=== PATIENT | male | born 1940 | race Caucasian/White ===

== ENCOUNTER 2018-04-07 19:56 | Inpatient (IN) | payer MEDICARE, OTHER ==
[2018-04-07] MEDS ORDERED: Morphine 4 MG/ML VIAL IVP STA (21:02)
[2018-04-07] MEDS ORDERED: Morphine 4 MG/ML VIAL ONE (21:06)
--- NOTE | 2018-04-07 21:24 | ED PDOC ---
HPI: Male Pain Time Seen by Provider: 04/07/18 20:52 Chief Complaint (Nursing): Male Genitourinary Chief Complaint (Provider): Male Genitourinary History Per: Patient Onset/Duration Of Symptoms: Hrs (x8) Current Symptoms Are (Timing): Still Present Additional Complaint(s): 78 y/o male with a PMHx of HTN and BPH presents to the ED for evaluation of urinary retention. Patient states that for the past eight hours, he has been unable to urinate and is instead passing blood slowly. Patient reports of having an enlarged prostrate and further states he has never needed surgery for it. Patient is now reporting of pelvic pain and back pain. Patient states he has needed a bryson for urinary retention once several years ago. Otherwise, patient denies nausea, vomiting, diarrhea, consitpation, fever and chills. PMD: Dr. Cantrell (clinic) however has not been there for 2 years Past Medical History Reviewed: Historical Data, Nursing Documentation, Vital Signs Vital Signs: Last Vital Signs Temp 97.7 F 04/07/18 19:57 Pulse 106 H 04/07/18 19:57 Resp 18 04/07/18 19:57 BP 151/73 H 04/07/18 19:57 Pulse Ox 100 04/07/18 19:57 - Medical History PMH: Asthma, Benign Prostatic Hyperplasia, COPD, HTN, Hypercholesterolemia Denies: HIV, Chronic Kidney Disease - Family History Family History: States: Hypertension - Social History Current smoker - smoking cessation education provided: No - Home Medications Home Medications: Ambulatory Orders Medication Instructions Recorded Amlodipine Besylate/Benazepril 1 cap PO DAILY 08/23/15 [Lotrel 5-20 mg Capsule] Finasteride [Proscar] 5 mg PO DAILY 08/23/15 Tamsulosin [Flomax] 0.4 mg PO DAILY 08/23/15 - Allergies Allergies/Adverse Reactions: Allergies Allergy/AdvReac Type Severity Reaction Status Date / Time No Known Allergies Allergy Verified 08/23/15 19:42 Review of Systems ROS Statement: Except As Marked, All Systems Reviewed And Found Negative (as per HPI) Gastrointestinal: Negative for: Nausea, Vomiting, Diarrhea, Constipation Genitourinary Male: Positive for: Other (urinary retention, pelvic pain) Musculoskeletal: Positive for: Back Pain Physical Exam - Reviewed Nursing Documentation Reviewed: Yes Vital Signs Reviewed: Yes - Physical Exam Appears: Positive for: Non-toxic, In Acute Distress Head Exam: Positive for: ATRAUMATIC, NORMOCEPHALIC Skin: Positive for: Warm, Dry Eye Exam: Positive for: EOMI, PERRL ENT: Negative for: Pharyngeal Erythema, Tonsillar Exudate Neck: Positive for: Painless ROM, Supple Cardiovascular/Chest: Positive for: Regular Rate, Rhythm. Negative for: Murmur Respiratory: Positive for: Normal Breath Sounds. Negative for: Wheezing Gastrointestinal/Abdominal: Positive for: Soft, Tenderness (to the pelic area). Negative for: Distended Male Genital Exam: Positive for: normal genitalia (otherwise:), other (penny blood occasionally oozing at the meatus ) Extremity: Positive for: Normal ROM. Negative for: Deformity Lymphatic: Negative for: Adenopathy Neurologic/Psych: Positive for: Alert. Negative for: Motor/Sensory Deficits - Laboratory Results Result Diagrams: 04/07/18 21:43 04/07/18 21:43 - ECG O2 Sat by Pulse Oximetry: 100 (RA) Pulse Ox Interpretation: Normal Medical Decision Making Medical Decision Making: Time: 2106 Impression: Urinary Obstruction Plan: -- Type and Screen -- CMP -- CBC with differentials -- PTT -- Prothrombin Time -- Morphine 2 mg IVP -- Urine Culture -- IV Insertion -- Bryson -- Urinalysis 10p Hgb 11, no recent baseline for comparison. Leukocytosis. 11p Bryson placed by nurse with relief of urine retention but despite bedside irrigation, continues to have bloody urine. CBI ordered. ASHLEIGH Henley Urology siphoner. Agrees with CBI and also for IV antibiotics. ASHLEIGH Kirkpatrick for hospitalization. Requests renal imaging. Scribe Attestation: Documented by Armando Lala, acting as a scribe for Viv Rae MD. Provider Scribe Attestation: All medical record entries made by the Scribe were at my direction and personally dictated by me. I have reviewed the chart and agree that the record accurately reflects my personal performance of the history, physical exam, medical decision making, and the department course for this patient. I have also personally directed, reviewed, and agree with the discharge instructions and disposition. Disposition - Clinical Impression Clinical Impression: Urinary retention, Hematuria Counseled Patient/Family Regarding: Studies Performed, Diagnosis - Disposition Disposition Time: 23:00 Condition: FAIR - POA Present On Arrival: None
[2018-04-07 22:13] LABS: BASO % 0.3 % (0.0-2.0); EOS % 0.1 % (0.0-4.0); HEMOGLOBIN 11.9 g/dL (12.0-18.0); LYMPH # 0.7 K/uL (1.0-4.3); MEAN CELL VOLUME 88.1 fl (80.0-94.0); MEAN CORPUSCULAR HGB CONC 31.8 g/dL (33.0-37.0); MEAN PLATELET VOLUME 8.8 fl (7.2-11.7); MONO # 0.5 K/uL (0.0-0.8); MONO % 3.1 % (0.0-10.0); NEUT # 13.5 K/uL (1.8-7.0); NEUT % 91.5 % (50.0-75.0); NRBC % 0.1 % (0.0-0.0); PLATELET COUNT 287 K/uL (130-400); RBC 4.25 Mil/uL (4.40-5.90); RED CELL DISTRIBUTION WIDTH 13.7 % (11.5-14.5); WHITE BLOOD COUNT 14.8 K/uL (4.8-10.8)
[2018-04-07 22:18] LABS: INR 1.1; PROTHROMBIN TIME 12.3 Seconds (9.8-13.1)
[2018-04-07 22:21] LABS: PARTIAL THROMBOPLASTIN TIME 29.1 Seconds (25.6-37.1)
[2018-04-07 22:22] LABS: ALB/GLOB RATIO 1.1 (1.0-2.1); ALBUMIN 4.1 g/dL (3.5-5.0); ALT/SGPT 23 U/L (21-72); AST/SGOT 24 U/L (17-59); BLOOD UREA NITROGEN 28 mg/dl (9-20); CALCIUM 9.5 mg/dL (8.4-10.2); GFR NON-AFRICAN AMERICAN > 60
[2018-04-07 23:01] LABS: LYMPHOCYTE 5 % (20-50); MONOCYTE 1 % (0-10); NEUTROPHIL 94 % (42-75); TOTAL CELLS COUNTED 100
[2018-04-07 23:02] LABS: PLATELET ESTIMATE NORMAL (NORMAL)
[2018-04-07 23:03] LABS: ANISOCYTOSIS SLIGHT; OVALOCYTES SLIGHT; POIKILOCYTOSIS SLIGHT
[2018-04-07] MEDS ORDERED: Ciprofloxacin 400mg/200ml D5W 400 MG/200 ML BAG IVPB STA (23:37)
[2018-04-08] MEDS ORDERED: Ciprofloxacin 400mg/200ml D5W 400 MG/200 ML BAG IVPB ONE (01:23)
[2018-04-08] MEDS ORDERED: Chlorhexidine Gluconate 1 APPL/PKT TP ONE ×3 (06:33→10:41)
--- NOTE | 2018-04-08 08:31 | RAD ---
Date of service: 04/07/2018 HISTORY: admission COMPARISON: 08/23/2015 chest x-ray. Prior CT chest with contrast report 07/25/2015 noted FINDINGS: LUNGS: Stable appearing left lung volume loss per similar leftward mediastinal shift. 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 Bilateral scarring/fibrosis both upper lobes-also also inferred an similar. Bilateral cavity formations also-much smaller in the right lung apex and similar in the left. These have been noted on prior CT reports. No radiographic chest x-ray change in appearance suggested. PLEURA: Biapical pleural parenchymal blending opacity. Left costophrenic angle hemidiaphragm obliterated-chronic left inferolateral pleural parenchymal pathology with or without effusion inferred. No right costophrenic angle pleural fluid noted. CARDIOVASCULAR: There is absence of aortic atherosclerotic calcification on x-ray. Normal cardiac size. No significant appearing pulmonary venous congestion. OSSEOUS STRUCTURES: No significant abnormalities. VISUALIZED UPPER ABDOMEN: Normal. OTHER FINDINGS: None. IMPRESSION: Chronic upper lobe pleural-parenchymal mixed pathology: Scarring/fibrosis/cystic lung disease and bronchiectasis with prior cavity formation-as referenced on CT. Similar extensive left lung volume loss. No interval changes per chest x-rays since 2016 appreciated.
[2018-04-08] MEDS ORDERED: Morphine 4 MG/ML VIAL IVP PRN (09:09)
[2018-04-08] MEDS ORDERED: Ciprofloxacin 200mg/100ml D5W 100 ML IVPB SCH (09:15)
[2018-04-08] MEDS ORDERED: Povidone Iodine Topical 10% Sol ONE (10:44)
[2018-04-08 10:55] LABS: HEMOGLOBIN 11.1 g/dL (12.0-18.0); MEAN CELL VOLUME 89.2 fl (80.0-94.0); MEAN CORPUSCULAR HEMOGLOBIN 28.3 pg (27.0-31.0); MEAN CORPUSCULAR HGB CONC 31.7 g/dL (33.0-37.0); RBC 3.91 Mil/uL (4.40-5.90); RED CELL DISTRIBUTION WIDTH 13.8 % (11.5-14.5); WHITE BLOOD COUNT 19.1 K/uL (4.8-10.8)
[2018-04-08 11:15] LABS: ALT/SGPT 18 U/L (21-72); AST/SGOT 24 U/L (17-59); BLOOD UREA NITROGEN 31 mg/dl (9-20); CALCIUM 9.3 mg/dL (8.4-10.2); GFR NON-AFRICAN AMERICAN > 60
--- NOTE | 2018-04-08 11:20 | CP.PCM.PN ---
Subjective - Date & Time of Evaluation Date of Evaluation: 04/08/18 Time of Evaluation: 10:54 - Subjective Subjective: Pt examined chart reviewed, Unable to re insert bryson. Discussed with Dr seman. Zhou procedcy with cysto pedrito Henley Objective - Vital Signs/Intake and Output Vital Signs (last 24 hours): Temp Pulse Resp BP Pulse Ox 97.9 F 84 20 110/64 100 04/08/18 08:19 04/08/18 08:19 04/08/18 08:19 04/08/18 02:40 04/08/18 08:19 - Medications Medications: Current Medications Albuterol/Ipratropium (Duoneb 3 Mg/0.5 Mg (3 Ml) Ud) 3 ml INH RTID BIBI Amlodipine Besylate (Norvasc) 5 mg PO DAILY BIBI Finasteride (Proscar) 5 mg PO DAILY BIBI Ciprofloxacin (Cipro 200mg/100ml D5w) 100 mls @ 100 mls/hr IVPB Q12 BIBI; Pro tocol Morphine Sulfate (Morphine) 2 mg IVP Q4 PRN PRN Reason: Pain, moderate (4-7) Last Admin: 04/08/18 09:22 Dose: 2 mg - Labs Labs: 04/07/18 21:43 04/07/18 21:43 PT 12.3 Seconds (9.8-13.1) 04/07/18 21:43 INR 1.1 04/07/18 21:43 APTT 29.1 Seconds (25.6-37.1) 04/07/18 21:43
--- NOTE | 2018-04-08 11:50 | CP.PCM.HP ---
Past Patient History - Past Medical History & Family History Past Medical History?: Yes - Past Social History Smoking Status: Former Smoker - CARDIAC Hx Cardiac Disorders: Yes Hx Hypercholesterolemia: Yes Hx Hypertension: Yes - PULMONARY Hx Respiratory Disorders: Yes Hx Asthma: Yes Hx Chronic Obstructive Pulmonary Disease (COPD): Yes - NEUROLOGICAL Hx Neurological Disorder: No - HEENT Hx HEENT Problems: No - RENAL Hx Chronic Kidney Disease: No - ENDOCRINE/METABOLIC Hx Endocrine Disorders: No - HEMATOLOGICAL/ONCOLOGICAL Hx Blood Disorders: No Hx AIDS: No Hx Human Immunodeficiency Virus (HIV): No - INTEGUMENTARY Hx Dermatological Problems: No - MUSCULOSKELETAL/RHEUMATOLOGICAL Hx Back Pain: Yes Hx Falls: No Hx Herniated Disk: Yes - GASTROINTESTINAL Hx Gastrointestinal Disorders: No - GENITOURINARY/GYNECOLOGICAL Hx Prostate Problems: Yes (BPH 5yrs ago) - PSYCHIATRIC Hx Psychophysiologic Disorder: No Hx Substance Use: No - SURGICAL HISTORY Hx Surgeries: No - ANESTHESIA Hx Anesthesia: Yes (local for dental work) Hx Anesthesia Reactions: No Hx Malignant Hyperthermia: No Has any member of the family had a problem w/ anesthesia?: No Meds Allergies/Adverse Reactions: Allergies Allergy/AdvReac Type Severity Reaction Status Date / Time No Known Allergies Allergy Verified 04/08/18 01:24 Results - Vital Signs Recent Vital Signs: Last Vital Signs Temp 97.9 F 04/08/18 08:19 Pulse 84 04/08/18 08:19 Resp 20 04/08/18 08:19 BP 110/64 04/08/18 02:40 Pulse Ox 100 04/08/18 08:19 - Labs Result Diagrams: 04/07/18 21:43 04/07/18 21:43 Labs: Laboratory Results - last 24 hr 04/07/18 04/07/18 04/07/18 21:43 21:43 21:43 WBC 14.8 H D RBC 4.25 L Hgb 11.9 L Hct 37.4 MCV 88.1 D MCH 28.0 MCHC 31.8 L RDW 13.7 Plt Count 287 D MPV 8.8 Neut % (Auto) 91.5 H Lymph % (Auto) 5.0 L [place] % (Auto) 3.1 Eos % (Auto) 0.1 Baso % (Auto) 0.3 Neut # (Auto) 13.5 H Lymph # (Auto) 0.7 L [place] # (Auto) 0.5 Eos # (Auto) 0.0 Baso # (Auto) 0.0 Neutrophils % (Manual) 94 H Lymphocytes % (Manual) 5 L Monocytes % (Manual) 1 Platelet Estimate Normal Poikilocytosis (manual Slight Anisocytosis (manual) Slight Ovalocytes Slight PT 12.3 INR 1.1 APTT 29.1 Sodium 139 Potassium 4.9 Chloride 104 Carbon Dioxide 24 Anion Gap 16 BUN 28 H Creatinine 1.1 Est GFR ( Amer) > 60 Est GFR (Non-Af Amer) > 60 Random Glucose 152 H Calcium 9.5 Total Bilirubin 0.4 AST 24 ALT 23 Alkaline Phosphatase 65 Total Protein 7.9 Albumin 4.1 Globulin 3.8 Albumin/Globulin Ratio 1.1 Blood Type Antibody Screen BBK History Checked 04/07/18 21:43 WBC RBC Hgb Hct MCV MCH MCHC RDW Plt Count MPV Neut % (Auto) Lymph % (Auto) [place] % (Auto) Eos % (Auto) Baso % (Auto) Neut # (Auto) Lymph # (Auto) [place] # (Auto) Eos # (Auto) Baso # (Auto) Neutrophils % (Manual) Lymphocytes % (Manual) Monocytes % (Manual) Platelet Estimate Poikilocytosis (manual Anisocytosis (manual) Ovalocytes PT INR APTT Sodium Potassium Chloride Carbon Dioxide Anion Gap BUN Creatinine Est GFR ( Amer) Est GFR (Non-Af Amer) Random Glucose Calcium Total Bilirubin AST ALT Alkaline Phosphatase Total Protein Albumin Globulin Albumin/Globulin Ratio Blood Type O POSITIVE Antibody Screen Negative BBK History Checked No verified bt
--- NOTE | 2018-04-08 12:56 | CT ---
Date of service: 04/07/2018 PROCEDURE: CT Abdomen and Pelvis without intravenous contrast HISTORY: urinary obstruction COMPARISON: Comparison made with the CT chest from 08/24/2015. A report from that exam is available. A CT abdomen and pelvic study without available report has some of the coronal images available to me. All of these axial images from the prior 2011 study are not available to me at this time. TECHNIQUE: Without contrast. Contrast dose: None Radiation dose: Total exam DLP = 218 mGy-cm. This CT exam was performed using one or more of the following dose reduction techniques: Automated exposure control, adjustment of the mA and/or kV according to patient size, and/or use of iterative reconstruction technique. FINDINGS: LOWER THORAX: The mixed cystic and apparently consolidative process at the left lung base posteriorly is similar in size previously bronchiectasis fibrosis here was referenced. Correlation with any known pre-existing pulmonary disease here is there are recommended. Left lung volume loss with mediastinal shift is similar in appearance with the 2016 study. There is some suggestion of some pathology at the left posterior lung base on the limited coronal CT abdomen and pelvic exam from 2010 as well. LIVER: Unremarkable. No gross lesion or ductal dilatation. GALLBLADDER AND BILE DUCTS: Large gallstone within the gallbladder noted. This is at least 2 cm in size and appears impacted in the gallbladder neck as it was a suggested as well on the [address] abdomen and pelvic image. No gross dilated intrahepatic bile ducts noted. PANCREAS: Unremarkable. No gross lesion or ductal dilatation. SPLEEN: Unremarkable. ADRENALS: Unremarkable. No mass. KIDNEYS AND URETERS: Bilateral multiple nonobstructing renal calculi noted. No calculi most of these appear less than 5 mm in size. An additional hypodensity perhaps a left lower renal pole cyst is also present a similar suggestion of this on the 2010 study is also noted. No hydronephrosis. No ureteral dilatation. VASCULATURE: No aortic aneurysm. There is presence of aortic atherosclerotic calcification and mural plaque on cross sectional studies. BOWEL: Moderate stool retention.. No obstruction. No gross mural thickening. APPENDIX: Unremarkable. Normal appendix. PERITONEUM: Unremarkable. No free fluid. No free air. LYMPH NODES: Unremarkable. No enlarged lymph nodes. BLADDER: Markedly distended as detailed below. REPRODUCTIVE: The bladder is distended with a large differential hypodensity in its posterior base of probably relating to the markedly enlarged prostate indenting the bladder base here. Indwelling Ness catheter is in place. The prostate measures 5.3 x 6.1 cm on axial series 3, image 160. Is also approximately 6 cm in cephalo caudal extent. Seminal vesicles appear unremarkable. Additional concomitant pathology in the bladder cannot be excluded. BONES: No acute fracture. OTHER FINDINGS: None. IMPRESSION: Distended bladder compatible with bladder outlet obstruction from a markedly enlarged prostate. No hydroureter or hydronephrosis seen. Nonobstructing renal calculi. Other findings as above. Chronic left lung base pathology coalescing cystic/bronchiectatic likely fibrotic changes as detailed above. Chronic left lung volume as above. Concordant results (preliminary interpretation) provided by [facility].
[2018-04-08] MEDS ORDERED: cefTRIAXone (Rocephin) 1 gm Inj ONE (16:45)
[2018-04-08] MEDS ORDERED: Lactated Ringer's 1,000 ML IV ONE (16:50)
[2018-04-08] MEDS ORDERED: Propofol 10 mg/ml Inj (20 ML) ONE (16:54)
[2018-04-08] MEDS ORDERED: Etomidate 20 mg/10ml Inj IV ONE (16:54)
[2018-04-08] MEDS ORDERED: Gentamicin 80mg/50ml NS 160 MG/100 ML BAG IVPB ONE (16:59)
[2018-04-08] MEDS ORDERED: Lidocaine 2% Jelly (Uro-Jet) ONE (17:33)
--- NOTE | 2018-04-08 17:49 | PCM.SURG1 ---
Surgeon's Initial Post Op Note - Surgeon's Notes Surgeon: Lory Services Manager: PATRICIA Type of Anesthesia: General LMA Anesthesia Administered By: staff Pre-Operative Diagnosis: BPH/Urinary retention/Gross Hematuria?clot retention Operative Findings: BPH clots Post-Operative Diagnosis: Hematuria/clot retention Operation Performed: Cysto evacuation uf clots. Insertion of Hematuria cath Specimen/Specimens Removed: clots Estimated Blood Loss: EBL {In ML}: 200 Blood Products Given: N/A Drains Used: No Drains Post-Op Condition: Good Date of Surgery/Procedure: 04/08/18 Time of Surgery/Procedure: 17:51
[2018-04-08] MEDS: Ciprofloxacin 400mg/200ml D5W 400 MG/200 ML BAG IVPB SCH (20:33)
[2018-04-08] MEDS: Albuterol-Ipratrop 3 mg / 0.5 (3 ml) UD INH SCH (20:45)
[2018-04-09] MEDS: Lactated Ringer's 1,000 ML IV SCH (00:03)
--- NOTE | 2018-04-09 02:31 | CON ---
DATE: 04/08/2018 REASON FOR CONSULTATION: Gross hematuria and urinary retention. HISTORY OF PRESENT ILLNESS: The patient presented to the emergency room here at [facility] with inability to urinate and gross hematuria. A 3-way catheter was inserted and the CBI was begun, and the patient was admitted to the hospital. Since being admitted to the hospital, the catheter had become clogged and then removed. The patient is complaining of difficulty in urination. He says he had slow progressive difficulty urination, beginning several months before admission and this culminated in urinary retention and gross hematuria. He denies any history of previous instrumentation or surgery. REVIEW OF SYSTEMS: RESPIRATORY SYSTEM: The patient has no respiratory complaints. GASTROINTESTINAL: The patient has no GI complaints. GENITOURINARY: The patient is having difficulty urination and has gross bloody hematuria. ORTHOPEDIC: Negative. NEUROLOGICAL: Negative. PSYCHIATRIC: Negative. SOCIAL AND FAMILY HISTORY: The patient is a nonsmoker and has a family in the [place] area. PHYSICAL EXAMINATION: VITAL SIGNS: Within normal limits. HEAD, EARS, EYES, NOSE, AND THROAT: Within normal limits. NECK: Supple. There are no bruits, nodes, or masses. CHEST: Clear bilaterally. There are no rales or rhonchi. HEART: Normal sinus rhythm. ABDOMEN: Soft and nontender. The bladder is distended four fingers above the pubic bone. There is minimal suprapubic tenderness. Testicles, epididymitis, and cord are normal. Penis is normal, circumcised. Meatus is adequate. Prostate is 3 to 4+ non-nodular without induration or tenderness. EXTREMITIES: Normal. VASCULAR EXAMINATION: Normal. NEUROLOGIC: Normal. IMPRESSION: Benign prostatic hypertrophy with gross hematuria and urinary clot retention. PLAN: Attempt was made to place a Ness catheter but was unsuccessful. This patient will need cystoscopy and removal of clots in addition which we are awaiting the report of the CAT scan of the abdomen and pelvis. The patient's family was notified and consent was obtained and decision was made to proceed with the procedure today. The OR is notified, and we are waiting an OR start time. Janak Henley MD [facility] # [id number]
--- NOTE | 2018-04-09 02:36 | OP ---
PROCEDURE DATE: 04/07/2018 PREOPERATIVE DIAGNOSIS: Urinary clot retention and benign prostatic hypertrophy. POSTOPERATIVE DIAGNOSIS: Urinary clot retention and benign prostatic hypertrophy. PROCEDURE: Cystoscopy and evacuation of clots. SURGEON: Janak Henley M.D. DESCRIPTION OF PROCEDURE: Prior to the procedure, we reviewed the previously signed consent with the son and daughter as well as the patient. The patient had received antibiotics. He agreed to proceed with the procedure. He was fully aware of the risks and limitations. He was brought in the room and draped and prepped in usual manner. Time-out was taken according to the rules and regulations of [facility]. The patient was cystoscoped with a #21 Storz panendoscope. The pendulous, membranous urethra was normal. The prostatic urethra showed trilobar hypertrophy, appeared very friable, and there was evidence of bleeding recently. The bladder was full of clots. These were evacuated using Sj syringe until all clotted blood was evacuated. Using a catheter guide, a #24 three-way hematuria catheter was inserted and normal saline irrigation was begun and was clear. The patient tolerated the procedure well and was sent to the recovery room in good condition. Dr. Kirkpatrick was advised of the findings and further plans. Janak Henley MD
[2018-04-09] MEDS: Albuterol-Ipratrop 3 mg / 0.5 (3 ml) UD INH SCH ×3 (07:21→19:08)
--- NOTE | 2018-04-09 07:50 | CARD ---
APPROVED REPORT Date of service: 04/08/2018 EKG Measurement Heart [id number] <Conclusion> Normal sinus rhythm Right atrial enlargement RSR' or QR pattern in V1 suggests right ventricular conduction delay Nonspecific T wave abnormality Prolonged QT Abnormal ECG
[2018-04-09] MEDS: Ciprofloxacin 400mg/200ml D5W 400 MG/200 ML BAG IVPB SCH ×2 (08:32→20:39)
[2018-04-09 12:18] LABS: HEMOGLOBIN 8.4 g/dL (12.0-18.0); MEAN CELL VOLUME 89.4 fl (80.0-94.0); MEAN CORPUSCULAR HEMOGLOBIN 28.7 pg (27.0-31.0); MEAN CORPUSCULAR HGB CONC 32.1 g/dL (33.0-37.0); RBC 2.92 Mil/uL (4.40-5.90); RED CELL DISTRIBUTION WIDTH 13.6 % (11.5-14.5); WHITE BLOOD COUNT 12.2 K/uL (4.8-10.8)
[2018-04-09 12:32] LABS: BLOOD UREA NITROGEN 25 mg/dl (9-20); CALCIUM 8.6 mg/dL (8.4-10.2); GFR NON-AFRICAN AMERICAN > 60
--- NOTE | 2018-04-09 22:41 | CP.PCM.PN ---
Subjective - Date & Time of Evaluation Date of Evaluation: 04/09/18 Time of Evaluation: 22:39 - Subjective Subjective: Urine is clear with CBI will stop Q1hr irrigation if urine is clear tomorrow will remove foley. Henley Objective - Vital Signs/Intake and Output Vital Signs (last 24 hours): Temp Pulse Resp BP Pulse Ox 98.1 F 92 H 18 138/70 99 04/09/18 16:28 04/09/18 16:28 04/09/18 16:28 04/09/18 16:28 04/09/18 16:28 - Medications Medications: Current Medications Albuterol/Ipratropium (Duoneb 3 Mg/0.5 Mg (3 Ml) Ud) 3 ml INH RTID [facility] Last Admin: 04/09/18 19:08 Dose: 3 ml Amlodipine Besylate (Norvasc) 5 mg PO DAILY BIBI Last Admin: 04/09/18 08:33 Dose: 5 mg Finasteride (Proscar) 5 mg PO DAILY BIBI Last Admin: 04/09/18 08:33 Dose: 5 mg Ciprofloxacin (Cipro 400mg/200ml Dsw) 400 mg in 200 mls @ 200 mls/hr IVPB Q12 BIBI; Protocol Last Admin: 04/09/18 20:39 Dose: 200 mls/hr Lactated Ringer's (Lactated Ringer's) 1,000 mls @ 100 mls/hr IV .Q10H BIBI Last Admin: 04/09/18 00:03 Dose: 100 mls/hr Morphine Sulfate (Morphine) 2 mg IVP Q4 PRN PRN Reason: Pain, moderate (4-7) Last Admin: 04/08/18 09:22 Dose: 2 mg - Labs Labs: 04/09/18 12:14 04/09/18 12:14 PT 12.3 Seconds (9.8-13.1) 04/07/18 21:43 INR 1.1 04/07/18 21:43 APTT 29.1 Seconds (25.6-37.1) 04/07/18 21:43
--- NOTE | 2018-04-10 00:38 | CP.PCM.PN ---
Subjective - Date & Time of Evaluation Date of Evaluation: 04/09/18 Objective - Vital Signs/Intake and Output Vital Signs (last 24 hours): Temp Pulse Resp BP Pulse Ox 98.1 F 85 20 111/58 L 98 04/10/18 00:15 04/10/18 00:15 04/10/18 00:15 04/10/18 00:15 04/10/18 00:15 - Medications Medications: Current Medications Albuterol/Ipratropium (Duoneb 3 Mg/0.5 Mg (3 Ml) Ud) 3 ml INH RTID [facility] Last Admin: 04/09/18 19:08 Dose: 3 ml Amlodipine Besylate (Norvasc) 5 mg PO DAILY BIBI Last Admin: 04/09/18 08:33 Dose: 5 mg Finasteride (Proscar) 5 mg PO DAILY [facility] Last Admin: 04/09/18 08:33 Dose: 5 mg Ciprofloxacin (Cipro 400mg/200ml Dsw) 400 mg in 200 mls @ 200 mls/hr IVPB Q12 BIBI; Protocol Last Admin: 04/09/18 20:39 Dose: 200 mls/hr Lactated Ringer's (Lactated Ringer's) 1,000 mls @ 100 mls/hr IV .Q10H BIBI Last Admin: 04/09/18 00:03 Dose: 100 mls/hr Morphine Sulfate (Morphine) 2 mg IVP Q4 PRN PRN Reason: Pain, moderate (4-7) Last Admin: 04/08/18 09:22 Dose: 2 mg Tamsulosin HCl (Flomax) 0.4 mg PO DAILY BIBI - Labs Labs: 04/09/18 12:14 04/09/18 12:14 PT 12.3 Seconds (9.8-13.1) 04/07/18 21:43 INR 1.1 04/07/18 21:43 APTT 29.1 Seconds (25.6-37.1) 04/07/18 21:43
[2018-04-10 06:31] LABS: HEMOGLOBIN 8.1 g/dL (12.0-18.0); MEAN CELL VOLUME 89.6 fl (80.0-94.0); MEAN CORPUSCULAR HEMOGLOBIN 29.1 pg (27.0-31.0); MEAN CORPUSCULAR HGB CONC 32.5 g/dL (33.0-37.0); RBC 2.78 Mil/uL (4.40-5.90); RED CELL DISTRIBUTION WIDTH 13.7 % (11.5-14.5); WHITE BLOOD COUNT 12.2 K/uL (4.8-10.8)
[2018-04-10] MEDS: Albuterol-Ipratrop 3 mg / 0.5 (3 ml) UD INH SCH ×3 (07:29→20:12)
[2018-04-10] MEDS: Ciprofloxacin 400mg/200ml D5W 400 MG/200 ML BAG IVPB SCH ×2 (09:46→20:33)
--- NOTE | 2018-04-10 15:17 | CP.PCM.PN ---
Subjective - Date & Time of Evaluation Date of Evaluation: 04/10/18 Time of Evaluation: 15:14 - Subjective Subjective: Urine is now clear. Pt is afibrile wbc trending downward urine cultures not yet reported. A Hematuria resolved. P. Ness removed for voiding trial if pt voids may be discharged on flomax finesteride and antibiotics,as per culture Objective - Vital Signs/Intake and Output Vital Signs (last 24 hours): Temp Pulse Resp BP Pulse Ox 97.4 F L 83 19 130/66 94 L 04/10/18 08:48 04/10/18 09:40 04/10/18 08:48 04/10/18 09:40 04/10/18 08:48 - Medications Medications: Current Medications Albuterol/Ipratropium (Duoneb 3 Mg/0.5 Mg (3 Ml) Ud) 3 ml INH RTID [facility] OF [facility] Last Admin: 04/10/18 13:09 Dose: 3 ml Amlodipine Besylate (Norvasc) 5 mg PO DAILY [facility] Last Admin: 04/10/18 09:40 Dose: 5 mg Finasteride (Proscar) 5 mg PO DAILY [facility] Last Admin: 04/10/18 09:40 Dose: 5 mg Ciprofloxacin (Cipro 400mg/200ml Dsw) 400 mg in 200 mls @ 200 mls/hr IVPB Q12 ON [facility] OF [facility]; Protocol Last Admin: 04/10/18 09:46 Dose: 200 mls/hr Lactated Ringer's (Lactated Ringer's) 1,000 mls @ 100 mls/hr IV .Q10H ON [facility] OF [facility] Last Admin: 04/09/18 00:03 Dose: 100 mls/hr Morphine Sulfate (Morphine) 2 mg IVP Q4 PRN PRN Reason: Pain, moderate (4-7) Last Admin: 04/08/18 09:22 Dose: 2 mg Tamsulosin HCl (Flomax) 0.4 mg PO DAILY [facility] Last Admin: 04/10/18 09:53 Dose: 0.4 mg - Labs Labs: 04/10/18 05:20 04/09/18 12:14 PT 12.3 Seconds (9.8-13.1) 04/07/18 21:43 INR 1.1 04/07/18 21:43 APTT 29.1 Seconds (25.6-37.1) 04/07/18 21:43
[2018-04-10 16:56] VITALS: RESP 20
--- NOTE | 2018-04-10 16:56 | CP.PCM.PN ---
Subjective - Date & Time of Evaluation Date of Evaluation: 04/10/18 Time of Evaluation: 15:50 Objective - Vital Signs/Intake and Output Vital Signs (last 24 hours): Temp Pulse Resp BP Pulse Ox 97.4 F L 83 19 130/66 94 L 04/10/18 08:48 04/10/18 09:40 04/10/18 08:48 04/10/18 09:40 04/10/18 08:48 - Medications Medications: Current Medications Albuterol/Ipratropium (Duoneb 3 Mg/0.5 Mg (3 Ml) Ud) 3 ml INH RTID [facility] Last Admin: 04/10/18 13:09 Dose: 3 ml Amlodipine Besylate (Norvasc) 5 mg PO DAILY [facility] Last Admin: 04/10/18 09:40 Dose: 5 mg Finasteride (Proscar) 5 mg PO DAILY [facility] Last Admin: 04/10/18 09:40 Dose: 5 mg Ciprofloxacin (Cipro 400mg/200ml Dsw) 400 mg in 200 mls @ 200 mls/hr IVPB Q12 BIBI; Protocol Last Admin: 04/10/18 09:46 Dose: 200 mls/hr Lactated Ringer's (Lactated Ringer's) 1,000 mls @ 100 mls/hr IV .Q10H BIBI Last Admin: 04/09/18 00:03 Dose: 100 mls/hr Morphine Sulfate (Morphine) 2 mg IVP Q4 PRN PRN Reason: Pain, moderate (4-7) Last Admin: 04/08/18 09:22 Dose: 2 mg Tamsulosin HCl (Flomax) 0.4 mg PO DAILY [facility] Last Admin: 04/10/18 09:53 Dose: 0.4 mg - Labs Labs: 04/10/18 05:20 04/09/18 12:14 PT 12.3 Seconds (9.8-13.1) 04/07/18 21:43 INR 1.1 04/07/18 21:43 APTT 29.1 Seconds (25.6-37.1) 04/07/18 21:43
[2018-04-11 06:45] LABS: HEMOGLOBIN 8.2 g/dL (12.0-18.0); MEAN CELL VOLUME 87.5 fl (80.0-94.0); MEAN CORPUSCULAR HEMOGLOBIN 28.9 pg (27.0-31.0); RBC 2.82 Mil/uL (4.40-5.90); RED CELL DISTRIBUTION WIDTH 13.9 % (11.5-14.5); WHITE BLOOD COUNT 9.5 K/uL (4.8-10.8)
[2018-04-11] MEDS: Albuterol-Ipratrop 3 mg / 0.5 (3 ml) UD INH SCH ×3 (07:43→19:54)
[2018-04-11] MEDS: Ciprofloxacin 400mg/200ml D5W 400 MG/200 ML BAG IVPB SCH (08:32)
--- NOTE | 2018-04-11 09:33 | CP.PCM.PN ---
Subjective - Date & Time of Evaluation Date of Evaluation: 04/11/18 Time of Evaluation: 09:28 - Subjective Subjective: Pt uriating clear urine Urologically ok for discharge. gu fu in 2 weeks.pt He should stay on flomax amd proscar. + oral antibiotics. Hosay Objective - Vital Signs/Intake and Output Vital Signs (last 24 hours): Temp Pulse Resp BP Pulse Ox 97.4 F L 73 20 148/70 96 04/11/18 08:35 04/11/18 08:35 04/11/18 08:35 04/11/18 08:35 04/11/18 08:35 - Medications Medications: Current Medications Albuterol/Ipratropium (Duoneb 3 Mg/0.5 Mg (3 Ml) Ud) 3 ml INH RTID [facility] Last Admin: 04/11/18 07:43 Dose: 3 ml Amlodipine Besylate (Norvasc) 5 mg PO DAILY [facility] Last Admin: 04/11/18 08:31 Dose: 5 mg Finasteride (Proscar) 5 mg PO DAILY [facility] Last Admin: 04/11/18 08:32 Dose: 5 mg Ciprofloxacin (Cipro 400mg/200ml Dsw) 400 mg in 200 mls @ 200 mls/hr IVPB Q12 BBII; Protocol Last Admin: 04/11/18 08:32 Dose: 200 mls/hr Lactated Ringer's (Lactated Ringer's) 1,000 mls @ 100 mls/hr IV .Q10H [facility] Last Admin: 04/09/18 00:03 Dose: 100 mls/hr Morphine Sulfate (Morphine) 2 mg IVP Q4 PRN PRN Reason: Pain, moderate (4-7) Last Admin: 04/08/18 09:22 Dose: 2 mg Tamsulosin HCl (Flomax) 0.4 mg PO DAILY [facility] Last Admin: 04/11/18 08:31 Dose: 0.4 mg - Labs Labs: 04/11/18 05:45 04/09/18 12:14 PT 12.3 Seconds (9.8-13.1) 04/07/18 21:43 INR 1.1 04/07/18 21:43 APTT 29.1 Seconds (25.6-37.1) 04/07/18 21:43
--- NOTE | 2018-04-11 20:33 | PQF ---
PROVIDER RESPONSE TEXT: Anemia of Blood Loss REVIEWER QUERY TEXT: Clarification of Clinical Diagnostic Findings Please clarify if there I an associated diagnosis to go along with the following clinical labs: H/H:1 1.9/37.4->11.1/34.9-.8.4/26.1->8.1/24.9 OR: Disagree OR: Unable to determine 1/2 : Op note; PREOP DX: Urinary clot retention and benign prostatic hypertrophy. POSTOP DX: Urinary clot retention and benign prostatic hypertrophy. PROCEDURE: Cystoscopy and evacuation of clots ? . The patient's Clinical Indicators include: -- Query created by: Usha Ch on 04/10/2018 10:10 AM Electronically signed by: Tomasa Kirkpatrick MD 04/11/2018 8:30 PM
[2018-04-12] MEDS: Albuterol-Ipratrop 3 mg / 0.5 (3 ml) UD INH SCH ×3 (09:14→13:54)
[2018-04-12 16:03] VITALS: BP 115/65; PULSE 73; TEMP 98.1; O2SAT 97
[2018-04-12] MEDS: Lactated Ringer's 1,000 ML IV SCH (17:20)
--- NOTE | 2018-04-12 23:00 | CP.PCM.PN ---
Subjective - Date & Time of Evaluation Date of Evaluation: 04/11/18 Time of Evaluation: 07:20 - Subjective Subjective: Sates feeling Better. Voiding non-bloody Urine. Objective - Vital Signs/Intake and Output Vital Signs (last 24 hours): Temp Pulse Resp BP Pulse Ox 98.1 F 73 20 115/65 97 04/12/18 16:03 04/12/18 16:03 04/12/18 16:03 04/12/18 16:03 04/12/18 16:03 Intake and Output: 04/12/18 04/13/18 18:59 06:59 Intake Total 1200 Output Total 2049 Balance -850 - Labs Labs: 04/11/18 05:45 04/09/18 12:14 PT 12.3 Seconds (9.8-13.1) 04/07/18 21:43 INR 1.1 04/07/18 21:43 APTT 29.1 Seconds (25.6-37.1) 04/07/18 21:43 - Constitutional Appears: Well - Head Exam Head Exam: ATRAUMATIC, NORMAL INSPECTION, NORMOCEPHALIC - Eye Exam Eye Exam: EOMI, Normal appearance, PERRL Pupil Exam: NORMAL ACCOMODATION, PERRL - ENT Exam ENT Exam: Mucous Membranes Moist, Normal Exam - Neck Exam Neck Exam: Full ROM, Normal Inspection. absent: Lymphadenopathy - Respiratory Exam Respiratory Exam: Clear to Ausculation Bilateral, NORMAL BREATHING PATTERN - Cardiovascular Exam Cardiovascular Exam: REGULAR RHYTHM, +S1, +S2. absent: Murmur - GI/Abdominal Exam GI & Abdominal Exam: Soft, Normal Bowel Sounds. absent: Tenderness - Extremities Exam Extremities Exam: Full ROM, Normal Capillary Refill, Normal Inspection. absent: Joint Swelling, Pedal Edema - Back Exam Back Exam: NORMAL INSPECTION - Neurological Exam Neurological Exam: Alert, Awake, CN II-XII Intact, Normal Gait, Oriented x3 - Psychiatric Exam Psychiatric exam: Normal Affect, Normal Mood - Skin Skin Exam: Dry, Intact, Normal Color, Warm Assessment and Plan (1) Acute urinary retention Status: Acute (2) S/P cystoscopy Status: Acute (3) Hematuria Status: Acute (4) Benign prostate hyperplasia Status: Chronic (5) Hypertension Status: Chronic - Assessment and Plan (Free Text) Plan: Continue IVF IV Cipro Flomax and Proscar ADP for D/c tomorrow
--- NOTE | 2018-04-12 23:05 | CP.PCM.DIS ---
Provider - Provider Date of Admission: 04/07/18 23:43 Attending physician: Tomasa Kirkpatrick MD Consults: 04/07/18 23:39 Urology Consult Stat Comment: Consulting Provider: Janak Henley Jr. Consulting Physician: Janak Henley Jr. Reason for Consult: hematuria 04/08/18 02:54 Social Work Referral Routine Comment: Per admission database Physician Instructions: Reason For Exam: pt lives alone Time Spent in preparation of Discharge (in minutes): 30 Diagnosis - Discharge Diagnosis (1) Hematuria, gross Status: Acute (2) Acute urinary retention Status: Acute (3) S/P cystoscopy Status: Acute (4) Benign prostate hyperplasia Status: Chronic (5) Hypertension Status: Chronic Hospital Course - Lab Results Lab Results: Most Recent Lab Values WBC 9.5 K/uL (4.8-10.8) 04/11/18 05:45 RBC 2.82 Mil/uL (4.40-5.90) L 04/11/18 05:45 Hgb 8.2 g/dL (12.0-18.0) L 04/11/18 05:45 Hct 24.7 % (35.0-51.0) L 04/11/18 05:45 MCV 87.5 fl (80.0-94.0) D 04/11/18 05:45 MCH 28.9 pg (27.0-31.0) 04/11/18 05:45 MCHC 33.0 g/dL (33.0-37.0) 04/11/18 05:45 RDW 13.9 % (11.5-14.5) 04/11/18 05:45 Plt Count 229 K/uL (130-400) 04/11/18 05:45 MPV 8.8 fl (7.2-11.7) 04/07/18 21:43 Neut % (Auto) 91.5 % (50.0-75.0) H 04/07/18 21:43 Lymph % (Auto) 5.0 % (20.0-40.0) L 04/07/18 21:43 [place] % (Auto) 3.1 % (0.0-10.0) 04/07/18 21:43 Eos % (Auto) 0.1 % (0.0-4.0) 04/07/18 21:43 Baso % (Auto) 0.3 % (0.0-2.0) 04/07/18 21:43 Neut # (Auto) 13.5 K/uL (1.8-7.0) H 04/07/18 21:43 Lymph # (Auto) 0.7 K/uL (1.0-4.3) L 04/07/18 21:43 [place] # (Auto) 0.5 K/uL (0.0-0.8) 04/07/18 21:43 Eos # (Auto) 0.0 K/uL (0.0-0.7) 04/07/18 21:43 Baso # (Auto) 0.0 K/uL (0.0-0.2) 04/07/18 21:43 Neutrophils % (Manual) 94 % (42-75) H 04/07/18 21:43 Lymphocytes % (Manual) 5 % (20-50) L 04/07/18 21:43 Monocytes % (Manual) 1 % (0-10) 04/07/18 21:43 Platelet Estimate Normal (NORMAL) 04/07/18 21:43 Poikilocytosis (manual Slight 04/07/18 21:43 Anisocytosis (manual) Slight 04/07/18 21:43 Ovalocytes Slight 04/07/18 21:43 PT 12.3 Seconds (9.8-13.1) 04/07/18 21:43 INR 1.1 04/07/18 21:43 APTT 29.1 Seconds (25.6-37.1) 04/07/18 21:43 Sodium 139 mmol/l (132-148) 04/09/18 12:14 Potassium 4.0 MMOL/L (3.6-5.0) 04/09/18 12:14 Chloride 103 mmol/L (98-107) 04/09/18 12:14 Carbon Dioxide 28 mmol/L (22-30) 04/09/18 12:14 Anion Gap 12 (10-20) 04/09/18 12:14 BUN 25 mg/dl (9-20) H 04/09/18 12:14 Creatinine 1.1 mg/dl (0.8-1.5) 04/09/18 12:14 Est GFR ( Amer) > 60 04/09/18 12:14 Est GFR (Non-Af Amer) > 60 04/09/18 12:14 Random Glucose 72 mg/dL (75-110) L 04/09/18 12:14 Calcium 8.6 mg/dL (8.4-10.2) 04/09/18 12:14 Total Bilirubin 0.4 mg/dl (0.2-1.3) 04/08/18 10:20 AST 24 U/L (17-59) 04/08/18 10:20 ALT 18 U/L (21-72) L D 04/08/18 10:20 Alkaline Phosphatase 64 U/L (38-126) 04/08/18 10:20 Total Protein 7.9 G/DL (6.3-8.2) 04/08/18 10:20 Albumin 4.0 g/dL (3.5-5.0) 04/08/18 10:20 Globulin 3.9 gm/dL (2.2-3.9) 04/08/18 10:20 Albumin/Globulin Ratio 1.0 (1.0-2.1) 04/08/18 10:20 Prostate Specific Ag 27.8 ng/ML (0.00-4.0) H 04/08/18 10:20 Blood Type O POSITIVE 04/07/18 21:43 Antibody Screen Negative 04/07/18 21:43 BBK History Checked No verified bt 04/07/18 21:43 Discharge Exam - Head Exam Head Exam: ATRAUMATIC, NORMAL INSPECTION, NORMOCEPHALIC Discharge Plan - Discharge Medications Prescriptions: Ciprofloxacin [Cipro] 500 mg PO Q12 #10 tab Tamsulosin [Flomax] 0.4 mg PO DAILY 60 Days cap Finasteride [Proscar] 5 mg PO DAILY #30 tab - Follow Up Plan Condition: FAIR Disposition: HOME/ ROUTINE Instructions: Blood in the Urine (Hematuria), Adult (DC), Urinary Retention (DC)
--- NOTE | 2018-04-14 02:56 | PQF ---
PROVIDER RESPONSE TEXT: Anemia due to Acute Blood Loss REVIEWER QUERY TEXT: Anemia Type Anemia of blood loss is documented in the Medical Record. Please specify the cause (includes [place] jaydon or probable cause) Such as: -- Due to acute blood loss -- Due to chronic blood loss -- Other, please specify The patient's Clinical Indicators include: -- Query created by: Usha Ch on 04/13/2018 7:40 AM Electronically signed by: Tomasa Kirkpatrick MD 04/14/2018 2:52 AM
== END 2018-04-12 19:20 | disposition home or self-care (01) | DRG 726 ==
LOC: H.ER 19:56 → H.ERHOLD 23:43 → H.MEDSURG1 04-08 02:35
PROVIDERS: ADMIT Internal Medicine; ATTEND Internal Medicine
PROC: 0TCB8ZZ Extirpation of Matter from Bladder, Via Natural or Artificial Opening Endoscopic (ICD-10-PCS; principal; 2018-04-08 17:00)
DX: N40.1 Benign prostatic hyperplasia with lower urinary tract symptoms (principal); N13.8 Other obstructive and reflux uropathy; D62 Acute posthemorrhagic anemia; R31.0 Gross hematuria; R33.9 Retention of urine, unspecified; N32.89 Other specified disorders of bladder; E78.00 Pure hypercholesterolemia, unspecified; I10 Essential (primary) hypertension; J44.9 Chronic obstructive pulmonary disease, unspecified; Z87.891 Personal history of nicotine dependence; R33.8 Other retention of urine; Z79.899 Other long term (current) drug therapy; M54.9 Dorsalgia, unspecified; R10.2 Pelvic and perineal pain